=== PATIENT | male | born 1995 | race Caucasian/White ===

== ENCOUNTER 2021-08-29 20:51 | Emergency (ER) | payer SELFPAY ==
[2021-08-29 21:10] VITALS: BP 110/72; PULSE 77; RESP 16; TEMP 36.9; O2SAT 98; BMI 21.1
[2021-08-29 23:27] VITALS: BP 109/58; PULSE 85; RESP 17; O2SAT 98
--- NOTE | 2021-08-29 23:27 | ED_ITS ---
Documented by User: TONI Sim 08/29/21 23:29 HPI - General Adult General: Chief complaint: General Medical Stated complaint: Hemmoriods bleeding Time Seen by Provider: 08/29/21 22:41 History of Present Illness: Patient said he had a bleeding hemorrhoid today patient has had a history of hemorrhoids but never had 1 that bled. The bleeding has almost stopped now presently denies any injury or other problems. Associated symptoms: Deny chest pain, dyspnea, headache(s), nausea, rash or vomiting Review of Systems Const: Denies: fever(s), chills or body aches Eyes: Denies: eye discomfort ENMT: Denies: throat pain Card: Denies: chest pain Resp: Denies: dyspnea GI: Reports: other (Hemorrhoid that has bled today. Bleeding is almost stopped.); Denies: abdominal pain, nausea or vomiting Skin/Breast: Denies: rash Neuro: Denies: headache(s) Psych: Denies: depression or suicidal ideation PFS ED PFSH: Social History Smoking and tobacco status: current every day smoker Quit status (tobacco): not considering quitting Second hand smoke exposure: No Alcohol intake: never Desire information about alcohol rehabilitation?: No Desire information about substance/drug rehabilitation?: No Physical Exam Const: COMMON NORMALS: no acute distress, patient oriented x3 and alert HENMT: COMMON NORMALS: normocephalic and external ears normal HEAD & SCALP: normocephalic EXTERNAL EAR: Yes external ears normal Eye: COMMON NORMALS: EOMs intact bilaterally Neck/C-Spine: COMMON NORMALS: no JVD Resp: COMMON NORMALS: normal respiratory effort and No use of accessory m uscles Cardio: COMMON NORMALS: no JVD GI: INSPECTION: Yes normal to inspection RECTAL EXAM: Yes hemorrhoids (Hemorrhoid small grape size. Does have some oozing of blood from it.) and Yes other (Wrist rectal exam appears normal. There is no tenderness.) Extremity: COMMON NORMALS: normal to inspection and full ROM Neuro: COMMON NORMALS: patient oriented x3 SENSORIUM/ORIENTATION: Yes alert Psych: COMMON NORMALS: mental status grossly normal Skin: COMMON NORMALS: no rashes or lesions noted GENERAL SKIN EXAM: no rashes or lesions noted Course Vital Signs: Vital signs: Vital Signs Temperature 98.4 F 08/29/21 21:10 Pulse Rate 85 08/29/21 23:27 Respiratory Rate 17 08/29/21 23:27 Blood Pressure 109/58 08/29/21 23:27 Pulse Oximetry 98 08/29/21 23:27 MDM - General Adult Medical Decision Making Bleeding hemorrhoid. Patient follow-up primary care provider. Use some itno-ldp-jhaospv medicines to help with hemorrhoid encourage high-fiber diet and fluids. Prescription given for Proctofoam. Discharge Plan Discharge Patient Disposition: Home Clinical Impression: Acute hemorrhoid Condition: Stable Prescriptions: New Proctofoam HC 1-1 % foam 1 applic [place] TID PRN (Reason: hemorrhoids) Qty: 10 0RF No Action Adacel(Tdap Adolesn/Adult)(PF) 2 Lf-(2.5-5-3-5 mcg)-5Lf/0.5 mL suspension 0.5 ml IM ONCE Qty: 1 0RF Discharge Orders: Discharge ED (Routine); Ordered 08/29/21 Ordered By: Dax Blakely Discharge Diet: Usual diet Discharge Activity: Resume usual activity Patient Instructions: Hemorrhoids (ED) Activity Restrictions/Additional Instructions: You can use Tuck pads. Can use [id number]-evo-iauhqyg cortisone suppositories. Make sure you have plenty of fiber in your diet drink plenty water. Follow-up primary care provider if no significant improvement. Coding Level of Care Code ED Psychiatric Aide Instructor for Chg Fwd Exam Comprehensive Documented by User: Dennis Flowers DO 08/30/21 01:25 HPI - General Adult General: Chief complaint: General Medical Stated complaint: Hemmoriods bleeding Time Seen by Provider: 08/29/21 22:41 PFSH ED PFSH: Social History Smoking and tobacco status: current every day smoker Quit status (tobacco): not considering quitting Second hand smoke exposure: No Alcohol intake: never Desire information about alcohol rehabilitation?: No Desire information about substance/drug rehabilitation?: No Course Vital Signs: Vital signs: Vital Signs Temperature 98.4 F 08/29/21 21:10 Pulse Rate 85 08/29/21 23:27 Respiratory Rate 17 08/29/21 23:27 Blood Pressure 109/58 08/29/21 23:27 Pulse Oximetry 98 08/29/21 23:27 MDM - General Adult Medical Decision Making Bleeding hemorrhoid. Patient follow-up primary care provider. Use some kcvx-oay-fijofla medicines to help with hemorrhoid encourage high-fiber diet and fluids. Prescription given for Proctofoam. This patient was originally seen by TONI Jennings.? I agree with his history, evaluation, and treatment. Discharge Plan Discharge Patient Disposition: Home Clinical Impression: Acute hemorrhoid Condition: Stable Prescriptions: New Proctofoam HC 1-1 % foam 1 applic [place] TID PRN (Reason: hemorrhoids) Qty: 10 0RF No Action Adacel(Tdap Adolesn/Adult)(PF) 2 Lf-(2.5-5-3-5 mcg)-5Lf/0.5 mL suspension 0.5 ml IM ONCE Qty: 1 0RF Discharge Orders: Discharge ED (Routine); Ordered 08/29/21 Ordered By: Dax Blakely Discharge Diet: Usual diet Discharge Activity: Resume usual activity Patient Instructions: Hemorrhoids (ED) Activity Restrictions/Additional Instructions: You can use Tuck pads. Can use yvii-gsb-uuoqnja cortisone suppositories. Make sure you have plenty of fiber in your diet drink plenty water. Follow-up primary care provider if no significant improvement. Coding Level of Care Code ED Psychiatric Aide Instructor for Chg Fwd Exam Comprehensive
== END 2021-08-29 23:32 | disposition home or self-care (01) ==
PROVIDERS: Emergency Provider Nurse Practitioner Family
DX: K64.9 Unspecified hemorrhoids (principal)
CPT/HCPCS: 99281